=== PATIENT | male | born 1985 | race African-American/Black ===

== ENCOUNTER 2025-05-19 10:09 | Emergency (ER) | payer MEDICAID, OTHER ==
[~2025-05-19] VITALS: Ht 188 cm; Wt 102.0 kg
[2025-05-19 10:31] VITALS: O2SAT 99
[2025-05-19 11:25] LABS: BASOPHILS % 0.4 % (0.0-2.0); EOSINOPHILS % 1.4 % (0.0-5.0); HEMATOCRIT. 46.9 % (42.0-52.0); LYMPHOCYTES % 21.9 % (20.0-50.0); MEAN CORPUSCULAR HEMOGLOBIN 30.5 pg (28.0-32.0); MEAN CORPUSCULAR HGB CONC 34.1 g/dL (31.0-37.0); MEAN CORPUSCULAR VOLUME 89.4 fL (80.0-94.0); MEAN PLATELET VOLUME 8.4 fl (7.4-10.4); MONOCYTES % 11.7 % (2.0-8.0); NEUTROPHILS % 64.6 % (40.0-76.0); PLATELET 228 x1000/uL (130-400); RED BLOOD CELL COUNT 5.25 mill/uL (4.7-6.1); RED CELL DISTRIBUTION WIDTH 14.3 % (11.6-14.6); WHITE BLOOD COUNT 4.6 x1000/uL (4.5-11.0)
[2025-05-19 12:05] LABS: CALCIUM 9.9 mg/dL (8.7-10.4); CHLORIDE 105 mEq/L (98-107); SODIUM 144 mEq/L (136-145)
[2025-05-19 12:06] LABS: CARBON DIOXIDE 28 mEq/L (21-32)
[2025-05-19 12:11] LABS: GLUCOSE 95 mg/dL (70-105); UREA NITROGEN BLOOD 6 mg/dL (9-23)
[2025-05-19] MEDS ORDERED: DOXY100T28 MT (14:40)
[2025-05-19] MEDS ORDERED: ERYT1OIN6 RIGHTEYE (14:40)
[2025-05-19 14:52] VITALS: BP 155/96; PULSE 72; RESP 14; TEMP 36.8; O2SAT 98
== END 2025-05-19 15:09 | disposition home or self-care (01) ==
LOC: ER 10:21
DX: H01.003 Unspecified blepharitis right eye, unspecified eyelid (principal); R22.0 Localized swelling, mass and lump, head; R22.1 Localized swelling, mass and lump, neck
CPT/HCPCS: 36415; 76536; 80048; 85025; 99284